=== PATIENT | female | born 1960 | race Native Hawaiian/Other Pacific Islander ===

== ENCOUNTER 2018-08-31 07:21 | Outpatient (CLI) | payer OTHER | END 2018-08-31 07:22 | disposition home or self-care (01) | LOC: C.LAB 07:21 | DX: E78.49 Other hyperlipidemia (principal); E55.9 Vitamin D deficiency, unspecified; E79.0 Hyperuricemia without signs of inflammatory arthritis and tophaceous disease; R53.83 Other fatigue; R73.01 Impaired fasting glucose ==

== ENCOUNTER 2018-10-30 11:11 | Outpatient (CLI) | payer OTHER | END 2018-10-30 11:12 | disposition home or self-care (01) | LOC: C.DEXAIC 11:11 ==